=== PATIENT | male | born 1975 | race Two or more races ===

== ENCOUNTER 2016-04-24 17:56 | Emergency (ER) | payer OTHER ==
[~2016-04-24] VITALS: Ht 188 cm; Wt 107.0 kg
[2016-04-24 20:50] VITALS: BP 149/98
== END 2016-04-24 20:50 | disposition home or self-care (01) ==
LOC: ED 17:56
DX: S00.81XA Abrasion of other part of head, initial encounter (principal); X58.XXXA Exposure to other specified factors, initial encounter; Y93.89 Activity, other specified; Y99.8 Other external cause status; Y92.89 Other specified places as the place of occurrence of the external cause